=== PATIENT | male | born 1945 | race Caucasian/White ===

== ENCOUNTER 2017-09-15 07:01 | Emergency (ER) | payer MEDICARE ==
[2013-05-23 17:02] VITALS: BMI 33.0
[~2017-09-15 07:01] MED LIST: ANTIVERT25 MG PO; BAYER CHEWABLE81 MG PO; HYZAAR 50-12.51 TAB PO; LOPRESSOR25 MG PO; PLAVIX75 MG PO; PRAVACHOL40 MG PO
[2017-09-15 07:24] LABS: BASOPHILS 0.1 % (0-2); EOSINOPHILS 0.1 % (0-7); HEMATOCRIT 45.9 % (42.0-54.0); HEMOGLOBIN 15.7 g/dL (13.5-17.5); IMMATURE GRANULOCYTES 0.4 % (0-5); LYMPHOCYTES 5.7 % (15-50); MCH 32.4 pg (26.0-34.0); MCHC 34.2 g/dL (31.0-37.0); MCV 94.8 fL (80.0-100.0); MEAN PLATELET VOLUME 11.7 fL (7.4-10.4); MONOCYTES 6.2 % (2-11); NEUTROPHILS 87.5 % (40-80); PLATELET COUNT 138 10x3/uL (130-400); RBC 4.84 10x6/uL (4.20-6.10); RDW 13.1 % (11.5-14.5); WBC 18.2 10x3/uL (4.8-10.8)
[2017-09-15 07:35] LABS: APPEARANCE CLEAR (CLEAR); BILIRUBIN NEGATIVE (NEGATIVE); COLOR YELLOW (YELLOW); GLUCOSE 50 mg/dL (NEGATIVE); KETONE NEGATIVE (NEGATIVE); NITRITE NEGATIVE (NEGATIVE); PROTEIN NEGATIVE (NEGATIVE); SPECIFIC GRAVITY 1.025 (1.005-1.020); UROBILINOGEN NORMAL (NORMAL)
[2017-09-15 07:36] LABS: BACTERIA FEW /hpf (NONE SEEN); EPITHELIAL CELLS 0-5 /hpf (0-5); MUCUS <1+ /lpf (NONE SEEN); WHITE CELLS - URINE 0-5 /hpf (0-5)
[2017-09-15 07:48] LABS: ANION GAP 15.6 mmol/L (8-16); BILIRUBIN - TOTAL 0.65 mg/dL (0.2-1.3); CALCIUM 8.7 mg/dL (8.5-10.1); CARBON DIOXIDE 24.5 mmol/L (21.0-32.0); POTASSIUM - SERUM 4.1 mmol/L (3.5-5.1)
== END 2017-09-15 09:30 | disposition home or self-care (01) ==
LOC: D.ER 07:01
PROVIDERS: Emergency Medicine
DX: N28.9 Disorder of kidney and ureter, unspecified (principal); R31.9 Hematuria, unspecified; N28.89 Other specified disorders of kidney and ureter; I10 Essential (primary) hypertension

== ENCOUNTER → 2017-09-27 12:23 | Outpatient (CLI) | payer MEDICARE ==
[2013-05-23 17:02] VITALS: BMI 33.0
== END | disposition home or self-care (01) ==
LOC: D.CT 12:23
DX: R31.9 Hematuria, unspecified (principal)

== ENCOUNTER → 2017-10-10 10:41 | Outpatient (CLI) | payer MEDICARE ==
[2013-05-23 17:02] VITALS: BMI 33.0
== END | disposition home or self-care (01) ==
LOC: D.CT 10:41
DX: R31.9 Hematuria, unspecified (principal)

== ENCOUNTER → 2018-04-03 09:00 | Outpatient (CLI) | payer MEDICARE ==
[2013-05-23 17:02] VITALS: BMI 33.0
== END | disposition home or self-care (01) ==
LOC: D.CT 09:00
DX: I71.4 Abdominal aortic aneurysm, without rupture (principal)